=== PATIENT | male | born 1980 | race Two or more races ===

== ENCOUNTER 2022-11-15 21:03 | Inpatient (IN) | payer MEDICARE, OTHER ==
[~2022-11-15] VITALS: Ht 175.3 cm; Wt 110.2 kg
--- NOTE | 2022-11-15 19:50 | NUR ---
Admission report received from [facility] nurse Rust.
--- NOTE | 2022-11-15 20:30 | NUR ---
Arrived in the floor from [facility] via [facility]. AAOx3, verbally responsive, calm, in no apparent distress. Transferred from [facility] to bed with 3 people assist. F/C intact and patent with moderate amount of yellow colored urine. Dressing on right ischial wound soiled and curled. Redness noted on perineum area. Able to move all extremities and able to repositioned self in bed. Routine admission care done. Safety measures and fall precaution initiated. Plan of care initiated. VS taken and recorded.
[2022-11-15] MEDS ORDERED: INSU100V7 SQ (22:28)
[2022-11-15] MEDS ORDERED: CLOT15CR5 TP (22:28)
[2022-11-15] MEDS ORDERED: ACET-2154 PO (22:28)
[2022-11-15] MEDS ORDERED: METO-357 PO (22:28)
[2022-11-15] MEDS ORDERED: PIPE3.3714 IV (22:28)
[2022-11-15] MEDS ORDERED: PANT40TA49 PO (22:28)
[2022-11-15] MEDS ORDERED: SODI473S8 MC (22:28)
[2022-11-15] MEDS ORDERED: HYDR-4209 PO (22:28)
[2022-11-15] MEDS ORDERED: INSU100V42 SQ (22:28)
[2022-11-15] MEDS ORDERED: PROT30LI PO (22:28)
[2022-11-15] MEDS ORDERED: METO25TA6 PO (22:28)
[2022-11-15] MEDS ORDERED: VALS1TAB6 PO (22:28)
[2022-11-15] MEDS ORDERED: FERR325T28 PO (22:28)
[2022-11-15] MEDS ORDERED: CLOZ100T32 PO ×2 (22:28)
[2022-11-15] MEDS ORDERED: FOLI1TAB94 PO (22:28)
[2022-11-15 23:54] VITALS: BP_SYST 146; BP_SYST 157; BP_DIAS 89; BP_DIAS 92
--- NOTE | 2022-11-16 01:39 | NUR ---
BS checked 223 mg/dl. Denies any s/s of hyperglycemia, stating that he drunk cranberry juice an hour ago and refused any insulin to be taken at this time. Will monitor.
[2022-11-16 05:45] VITALS: BP 143/63
[2022-11-16 07:45] VITALS: BP 160/97
[2022-11-16] MEDS: REMEDY ESSENTIAL ZINC PASTE 113 GM TOP SCH ×2 (09:17→20:34)
[2022-11-16] MEDS ORDERED: METO50TA16 PO (13:28)
[2022-11-16] MEDS ORDERED: VALS1TAB77 PO (13:28)
[2022-11-16] MEDS ORDERED: EMPA25TA PO (13:49)
[2022-11-16] MEDS ORDERED: LORA-259 PO (13:49)
[2022-11-16] MEDS ORDERED: INSU100I26 SQ (13:49)
--- NOTE | 2022-11-16 14:18 | NUR ---
INTERDISCIPLINARY TEAM CONFERENCE
[2022-11-16 15:48] VITALS: BP 126/69
[2022-11-16] MEDS ORDERED: ACETAMINOPHEN 325 MG TABLET PO PRN (17:30)
[2022-11-16] MEDS: PIPERACILLIN SODIUM/TAZOBACTAM 3.375 G in IV DEXTROSE 5% 100 ML IV SCH ×2 (19:49→22:00)
[2022-11-16] MEDS: HYDROCODONE/APAP 5-325MG TABLET PO PRN (19:59)
[2022-11-16 20:00] VITALS: BP 142/82
--- NOTE | 2022-11-16 20:02 | NUR ---
RECEIVED REPORT FROM AGGIE COLINDRES RN. PATIENT IS ALERT & ORIENTED X4 AND SPEAKS ARMENIAN. VITAL SIGNS STABLE. PATIENT TOLERATES PO MEDICATIONS AND DIET WELL. PATIENT PARTICIPATES WITH PHYSICAL AND OCCUPATIONAL THERAPY SCHEDULE. PATIENT VOIDS ADEQUATELY & HAD 3 BOWEL MOVEMENTS. PATIENT HAD COMPLAINTS OF PAIN, BUT DID NOT WANT PAIN MEDICATIONS AT THE TIME. JASPAL MEANS, COMPLETED MEDICATION RECONCILIATION. NO ACUTE DISTRESS NOTED. FALL PRECAUTIONS OBSERVED; INCLUDING BUT NOT LIMITED TO BED IN LOWEST POSITION AND BED ALARM ON. ALL NEEDS MET AT THIS TIME. ENDORSED CARE TO VIDAL COLINDRES, FOR CONTINUATION OF CARE.
[2022-11-16] MEDS: CLOTRIMAZOLE/BETAMET DIPROP CREAM 15 GM TUBE TP SCH (20:33)
[2022-11-16] MEDS: CLOZAPINE 100 MG TABLET PO SCH (20:33)
[2022-11-16] MEDS: METOPROLOL TARTRATE 50 MG TABLET PO SCH (20:37)
[2022-11-16] MEDS: INSULIN GLARGINE,HUM 300 UNITS/3 ML CARTRIDGE SQ SCH (20:44)
[2022-11-16] MEDS ORDERED: PIPERACILLIN SODIUM/TAZOBACTAM 3.375 G in IV DEXTROSE 5% 50 ML IV SCH (22:00)
--- NOTE | 2022-11-16 23:29 | NUR ---
Zosyn IV ATB due for 2199 was not given. Administered first dose at 2000 @25cc/hour x 4 hour.
[2022-11-17 04:00] VITALS: BP 145/84
[2022-11-17] MEDS: PIPERACILLIN SODIUM/TAZOBACTAM 3.375 G in IV DEXTROSE 5% 100 ML IV SCH ×3 (05:19→21:22)
[2022-11-17] MEDS: PANTOPRAZOLE SODIUM 40 MG TABLET.DR PO SCH ×2 (06:03→17:45)
[2022-11-17] MEDS ORDERED: INSULIN LISPRO 300 UNIT/3 ML VIAL SQ SCH (07:30)
[2022-11-17 07:56] VITALS: BP 113/65
--- NOTE | 2022-11-17 08:37 | NUR ---
WOUND CARE CONSULT: ATTEMPTED TO SEE PT THIS AM AT 0750 BUT PT WAS SLEEPING SOUNDLY. REVIEWED CHART, NURSING DOCUMENTATION AND PHOTO WHICH INDICATES PERINEAL/BUTTOCK SURGICAL WOUND, PRESENT ON ADMISSION. MSG LEFT FOR DR JHONY MORA REGARDING WOUND TREATMENT AND SURGICAL FOLLOW UP. DISCUSSED SKIN PROTECTION WITH NURSING STAFF.
[2022-11-17] MEDS ORDERED: Empagliflozin (Jardiance) 25 MG) PO SCH (09:00)
[2022-11-17] MEDS: METOPROLOL TARTRATE 50 MG TABLET PO SCH ×2 (09:00→17:46)
[2022-11-17] MEDS: CLOZAPINE 100 MG TABLET PO SCH ×2 (09:42→20:17)
[2022-11-17] MEDS: EMPAGLIFLOZIN 25 MG TABLET PO SCH (09:42)
[2022-11-17] MEDS: VALSARTAN 160 MG TABLET PO SCH (09:43)
[2022-11-17] MEDS: FERROUS SULFATE 325 MG TABEC PO SCH (09:43)
[2022-11-17] MEDS: CLOTRIMAZOLE/BETAMET DIPROP CREAM 15 GM TUBE TP SCH ×2 (09:43→17:45)
[2022-11-17] MEDS: HYDROCHLOROTHIAZIDE 25 MG TABLET PO SCH (09:44)
[2022-11-17] MEDS: FOLIC ACID 1 MG TABLET PO SCH (09:44)
[2022-11-17] MEDS: SODIUM HYPOCHLORITE 0.125% (QUARTER STRENGTH) 473 ML BOTTLE TP SCH (09:45)
[2022-11-17] MEDS: PROTEIN SUPPLEMENT (PROSTAT) 30 ML LIQUID PO SCH ×2 (09:45→17:45)
[2022-11-17] MEDS: REMEDY ESSENTIAL ZINC PASTE 113 GM TOP SCH ×2 (09:45→20:18)
[2022-11-17] MEDS: INSULIN GLARGINE,HUM 300 UNITS/3 ML CARTRIDGE SQ SCH ×2 (09:54→20:23)
--- NOTE | 2022-11-17 10:48 | NUR ---
WOUND CARE: PT SEEN FOR PERINEAL/RT BUTTOCK SURGICAL WOUND WHICH IS NOTED TO HAVE SURGICAL DEVICE IN PLACE. RED GRANULATION TISSUE NOTED WITH MODERATE AMOUNT OF SEROSANGUINOUS DRAINAGE, NO ODOR. RECOMMEND SURGICAL FOLLOW UP. DISCUSSED SKIN PROTECTION AND WOUND CARE RECOMMENDATIONS WITH NURSING STAFF. MD IN AGREEMENT WITH PLAN OF CARE.
[2022-11-17] MEDS ORDERED: DEXTROSE 50% 50 ML DISP.SYRIN IV PRN (12:15)
[2022-11-17] MEDS: INSULIN REGULAR, HUMAN 300 UNIT/3 ML VIAL SQ PRN ×3 (12:36→20:25)
[2022-11-17 15:44] VITALS: BP 122/66
[2022-11-17] MEDS: BLOOD SUGAR DIAGNOSTIC 1 EACH STRIP VI SCH ×2 (16:33→20:21)
--- NOTE | 2022-11-17 19:50 | NUR ---
RECEIVED REPORT FROM AGGIE COLINDRES RN. PATIENT IS ALERT & ORIENTED X4 AND SPEAKS KHMER. VITAL SIGNS STABLE. PATIENT TOLERATES PO & IV MEDICATIONS AND DIET WELL. ANTIBIOTICS GIVEN ORDERED. PATIENT PARTICIPATES WITH PHYSICAL AND OCCUPATIONAL THERAPY SCHEDULE. CAIN CATHETER PATENT AND DRAINING. PATIENT VOIDS ADEQUATELY & HAD 3 BOWEL MOVEMENTS. PATIENT HAD COMPLAINTS OF PAIN, BUT DID NOT WANT PAIN MEDICATIONS AT THE TIME. INSULIN SLIDING SCALE AND DIABETES MANAGEMENT RECONCILED BY PHARMACY, PER REQUEST OF JASPAL MEANS. NO ACUTE DISTRESS NOTED. FALL PRECAUTIONS OBSERVED; INCLUDING BUT NOT LIMITED TO BED IN LOWEST POSITION AND BED ALARM ON. ALL NEEDS MET AT THIS TIME. ENDORSED CARE TO VIDAL COLINDRES, FOR CONTINUATION OF CARE.
[2022-11-17 20:00] VITALS: BP 158/83
[2022-11-18 04:53] VITALS: BP 140/75
[2022-11-18] MEDS: PIPERACILLIN SODIUM/TAZOBACTAM 3.375 G in IV DEXTROSE 5% 100 ML IV SCH ×3 (05:19→22:12)
[2022-11-18] MEDS: PANTOPRAZOLE SODIUM 40 MG TABLET.DR PO SCH ×2 (05:24→17:22)
[2022-11-18] MEDS: BLOOD SUGAR DIAGNOSTIC 1 EACH STRIP VI SCH ×4 (06:06→20:44)
[2022-11-18 07:59] VITALS: BP 153/85
--- NOTE | 2022-11-18 08:47 | NUR ---
INDIVIDUALIZED PLAN OF CARE
[2022-11-18] MEDS: FOLIC ACID 1 MG TABLET PO SCH (09:14)
[2022-11-18] MEDS: FERROUS SULFATE 325 MG TABEC PO SCH (09:15)
[2022-11-18] MEDS: HYDROCHLOROTHIAZIDE 25 MG TABLET PO SCH (09:15)
[2022-11-18] MEDS: METOPROLOL TARTRATE 50 MG TABLET PO SCH ×2 (09:15→17:22)
[2022-11-18] MEDS: EMPAGLIFLOZIN 25 MG TABLET PO SCH (09:16)
[2022-11-18] MEDS: CLOZAPINE 100 MG TABLET PO SCH ×2 (09:16→20:44)
[2022-11-18] MEDS: REMEDY ESSENTIAL ZINC PASTE 113 GM TOP SCH ×2 (09:17→20:47)
[2022-11-18] MEDS: PROTEIN SUPPLEMENT (PROSTAT) 30 ML LIQUID PO SCH ×2 (09:18→17:22)
[2022-11-18] MEDS: INSULIN GLARGINE,HUM 300 UNITS/3 ML CARTRIDGE SQ SCH ×2 (09:19→20:45)
[2022-11-18] MEDS: SODIUM HYPOCHLORITE 0.125% (QUARTER STRENGTH) 473 ML BOTTLE TP SCH (09:20)
[2022-11-18] MEDS: CLOTRIMAZOLE/BETAMET DIPROP CREAM 15 GM TUBE TP SCH ×2 (09:21→17:23)
[2022-11-18] MEDS: INSULIN REGULAR, HUMAN 300 UNIT/3 ML VIAL SQ PRN ×4 (09:22→20:56)
[2022-11-18] MEDS: VALSARTAN 160 MG TABLET PO SCH (09:31)
[2022-11-18] MEDS: HYDROCODONE/APAP 5-325MG TABLET PO PRN ×2 (11:51→17:33)
[2022-11-18 15:52] VITALS: BP 130/73
[2022-11-18] MEDS: LORAZEPAM 1 MG TABLET PO PRN (17:31)
[2022-11-18 20:00] VITALS: BP 125/72
--- NOTE | 2022-11-18 23:00 | NUR ---
1900-PATIENT IN BED, AWAKE, A/Ox4, VERBALIZES NEEDS AND FOLLOWS DIRECTIONS. NO RESPIRATORY DISTRESS NOTED. The patient has patent joaquin midline that is clean, patent, dry, and intact. The patient has a lee catheter that is clean, patent, dry, intact, and below the bladder. The patient has a wound in his groin area. Wound is not draining, and is clean, and dry. Changed dressing of wound. SAFETY MEASURES AND CALL LIGHT AT REACH, bed at lowest position, wheels lock, and two side rails up, bed alarm on. ORAL FLUIDS OFFERED LOUIE. AND TAKEN WELL. Will continue to monitor throughout the shift. 2200- The patient is awake and watching television. The patient has no signs of distress, or sob. Will continue to monitor throughout the shift. 0300- The patient request for an extra pillow. Item is given to the patient. The patient has no sob. Will continue to monitor throughout the shift.
[2022-11-19 04:00] VITALS: BP 141/78
[2022-11-19] MEDS: PIPERACILLIN SODIUM/TAZOBACTAM 3.375 G in IV DEXTROSE 5% 100 ML IV SCH ×3 (06:49→22:10)
[2022-11-19] MEDS: PANTOPRAZOLE SODIUM 40 MG TABLET.DR PO SCH ×2 (06:49→16:18)
[2022-11-19] MEDS: BLOOD SUGAR DIAGNOSTIC 1 EACH STRIP VI SCH ×4 (07:37→21:22)
[2022-11-19 08:52] VITALS: BP 135/83
[2022-11-19] MEDS: FERROUS SULFATE 325 MG TABEC PO SCH (09:09)
[2022-11-19] MEDS: HYDROCHLOROTHIAZIDE 25 MG TABLET PO SCH (09:09)
[2022-11-19] MEDS: FOLIC ACID 1 MG TABLET PO SCH (09:09)
[2022-11-19] MEDS: METOPROLOL TARTRATE 50 MG TABLET PO SCH ×2 (09:09→16:19)
[2022-11-19] MEDS: REMEDY ESSENTIAL ZINC PASTE 113 GM TOP SCH ×2 (09:10→21:26)
[2022-11-19] MEDS: VALSARTAN 160 MG TABLET PO SCH (09:10)
[2022-11-19] MEDS: PROTEIN SUPPLEMENT (PROSTAT) 30 ML LIQUID PO SCH ×2 (09:10→16:19)
[2022-11-19] MEDS: SODIUM HYPOCHLORITE 0.125% (QUARTER STRENGTH) 473 ML BOTTLE TP SCH (09:11)
[2022-11-19] MEDS: CLOTRIMAZOLE/BETAMET DIPROP CREAM 15 GM TUBE TP SCH ×2 (09:11→16:20)
[2022-11-19] MEDS: CLOZAPINE 100 MG TABLET PO SCH ×2 (09:15→21:21)
[2022-11-19] MEDS: EMPAGLIFLOZIN 25 MG TABLET PO SCH (09:15)
[2022-11-19] MEDS: INSULIN GLARGINE,HUM 300 UNITS/3 ML CARTRIDGE SQ SCH ×2 (09:15→21:22)
[2022-11-19] MEDS: INSULIN REGULAR, HUMAN 300 UNIT/3 ML VIAL SQ PRN ×3 (11:09→21:23)
[2022-11-19 16:23] VITALS: BP 141/88
--- NOTE | 2022-11-19 16:36 | NUR ---
dressing changed to right groin wound, no drainage noted, wound bed is red in color, drainage tube is intact. no acute distress noted, no events noted.
--- NOTE | 2022-11-19 23:00 | NUR ---
1910-PATIENT IN BED, AWAKE, A/Ox4, VERBALIZES NEEDS AND FOLLOWS DIRECTIONS. NO RESPIRATORY DISTRESS NOTED. The patient has patent joaquin midline that is clean, patent, dry, and intact. The patient has a lee catheter that is clean, patent, dry, intact, and below the bladder. The patient has a wound in his groin area. Wound is not draining, and is clean, and dry. Changed dressing of wound. SAFETY MEASURES AND CALL LIGHT AT REACH, bed at lowest position, wheels lock, and two side rails up, bed alarm on. ORAL FLUIDS OFFERED LOUIE. AND TAKEN WELL. Will continue to monitor throughout the shift. 2300- The patient is awake and request for extra water. item is given to the patient. The patient has no signs of distress, or sob. Will continue to monitor throughout the shift. 0200- The patient request for an extra pillow. Item is given to the patient. The patient has no sob. Will continue to monitor throughout the shift.
[2022-11-20] MEDS: PANTOPRAZOLE SODIUM 40 MG TABLET.DR PO SCH ×2 (06:27→16:40)
[2022-11-20] MEDS: PIPERACILLIN SODIUM/TAZOBACTAM 3.375 G in IV DEXTROSE 5% 100 ML IV SCH ×3 (06:27→21:29)
[2022-11-20 06:59] LABS: HEMATOCRIT 26.1 % (36.7-47.1); MEAN CORPUSCULAR HEMOGLOBIN 29.7 uug (23.8-33.4); MEAN CORPUSCULAR VOLUME 89.8 fL (73.0-96.2); PLATELET COUNT (AUTO) 377 K/uL (152-348)
[2022-11-20 07:30] VITALS: BP 132/89
[2022-11-20 07:47] LABS: BILIRUBIN,TOTAL 0.2 mg/dL (0.2-1.0); CREATININE 1.9 mg/dL (0.6-1.3); MAGNESIUM 2.3 mg/dL (1.8-2.4); PHOSPHOROUS 4.5 mg/dL (2.5-4.9); POTASSIUM 3.3 mmol/L (3.5-5.1); TOTAL PROTEIN, SERUM 7.3 g/dL (6.4-8.2)
[2022-11-20] MEDS: INSULIN REGULAR, HUMAN 300 UNIT/3 ML VIAL SQ PRN ×4 (07:56→20:35)
[2022-11-20] MEDS: BLOOD SUGAR DIAGNOSTIC 1 EACH STRIP VI SCH ×4 (07:57→20:30)
[2022-11-20] MEDS: INSULIN GLARGINE,HUM 300 UNITS/3 ML CARTRIDGE SQ SCH ×2 (08:01→20:36)
[2022-11-20] MEDS: FOLIC ACID 1 MG TABLET PO SCH (08:02)
[2022-11-20] MEDS: HYDROCHLOROTHIAZIDE 25 MG TABLET PO SCH (08:04)
[2022-11-20] MEDS: METOPROLOL TARTRATE 50 MG TABLET PO SCH ×2 (08:05→16:40)
[2022-11-20] MEDS: VALSARTAN 160 MG TABLET PO SCH (08:05)
[2022-11-20] MEDS: EMPAGLIFLOZIN 25 MG TABLET PO SCH (08:06)
[2022-11-20] MEDS: CLOZAPINE 100 MG TABLET PO SCH ×2 (08:06→20:24)
[2022-11-20] MEDS: PROTEIN SUPPLEMENT (PROSTAT) 30 ML LIQUID PO SCH ×2 (08:07→16:40)
[2022-11-20] MEDS: REMEDY ESSENTIAL ZINC PASTE 113 GM TOP SCH ×2 (08:07→20:26)
[2022-11-20] MEDS: FERROUS SULFATE 325 MG TABEC PO SCH (08:08)
[2022-11-20] MEDS: SODIUM HYPOCHLORITE 0.125% (QUARTER STRENGTH) 473 ML BOTTLE TP SCH (08:08)
[2022-11-20] MEDS: CLOTRIMAZOLE/BETAMET DIPROP CREAM 15 GM TUBE TP SCH ×2 (08:08→16:41)
[2022-11-20] MEDS ORDERED: POTASSIUM CHLORIDE 10 MEQ TAB.PRT.SR PO ONE (11:00)
--- NOTE | 2022-11-20 15:10 | NUR ---
patient is alert, oriented x4, patient noted with blood pressure dropped during physical therapy session, however patient remained alert, oriented x4, no sob, respiration are even nonlabored, skin warm and dry to touch, blood pressure rechecked 97/55. assisted back to bed, fluids given, tolerated well. continue to monitor Addendum: 11/20/22 at 1600 by NIA CHI RN, RN Patient complained feeling dizzy though. reported to JASPAL banerjee, JASPAL banerjee ordered parameteres to all blood pressure medications. continue to monitor patient closely, no acute distress noted at this time. Addendum: 11/20/22 at 1841 by NIA CHI RN RN patient refused to have his right groin area dressing changed, risks and benefits explained, patient verbalized understanding of it. patient stated he feels dry. endorse to next shift accordingly.
[2022-11-20 15:41] VITALS: BP 117/66
[2022-11-20 18:36] LABS: *BILIRUBIN,URIN NEGATIVE (NEGATIVE); *BLOOD, URINE 2+ (NEGATIVE); *COLOR,URINE YELLOW (YELLOW); *KETONES,URINE NEGATIVE (NEGATIVE); *UROBILINOGEN,URINE 0.2 E.U./dl (NORMAL); LEUKOCYTE ESTERASE ,URINE 2+ (NEGATIVE); NITRITE, URINE NEGATIVE (NEGATIVE)
[2022-11-20 18:43] LABS: *CLARITY,URINE SLIGHTLY CLOUDY (CLEAR); UGLUCOSE 2+ (NEGATIVE)
[2022-11-20 18:50] LABS: *CREATININE,URINE 42.4 mg/dL (30-125); *URINE TOTAL PROTEIN RANDOM 70.7 mg/dL (<150/24HR)
[2022-11-20 20:23] LABS: RBC,URINE 50-80 /HPF (0-3)
[2022-11-20 20:24] LABS: BACTERIA,URINE FEW /HPF (NONE SEEN); SQUAMOUS EPITHELIAL CELL,UR NONE SEEN /HPF (NONE SEEN); WBC,URINE 20-50 /HPF (0-3); YEAST,URINE MANY /HPF (NONE SEEN)
[2022-11-20 20:36] VITALS: BP 118/70
[2022-11-21 04:25] VITALS: BP 93/54
[2022-11-21] MEDS: PIPERACILLIN SODIUM/TAZOBACTAM 3.375 G in IV DEXTROSE 5% 100 ML IV SCH ×3 (05:18→22:04)
[2022-11-21] MEDS: PANTOPRAZOLE SODIUM 40 MG TABLET.DR PO SCH ×2 (06:19→16:48)
[2022-11-21] MEDS: BLOOD SUGAR DIAGNOSTIC 1 EACH STRIP VI SCH ×4 (06:22→20:15)
[2022-11-21 07:31] VITALS: BP 121/76
[2022-11-21 07:40] LABS: HEMATOCRIT 27.8 % (36.7-47.1); MEAN CORPUSCULAR HEMOGLOBIN 29.9 uug (23.8-33.4); MEAN CORPUSCULAR VOLUME 89.6 fL (73.0-96.2); PLATELET COUNT (AUTO) 379 K/uL (152-348)
[2022-11-21 08:48] LABS: CREATININE 2.1 mg/dL (0.6-1.3); POTASSIUM 3.8 mmol/L (3.5-5.1)
[2022-11-21] MEDS: VALSARTAN 160 MG TABLET PO SCH (08:48)
[2022-11-21] MEDS: FOLIC ACID 1 MG TABLET PO SCH (08:48)
[2022-11-21 08:49] LABS: BILIRUBIN,TOTAL 0.2 mg/dL (0.2-1.0); MAGNESIUM 2.4 mg/dL (1.8-2.4); PHOSPHOROUS 4.3 mg/dL (2.5-4.9); TOTAL PROTEIN, SERUM 7.7 g/dL (6.4-8.2)
[2022-11-21] MEDS: METOPROLOL TARTRATE 50 MG TABLET PO SCH ×2 (08:49→16:49)
[2022-11-21] MEDS: HYDROCHLOROTHIAZIDE 25 MG TABLET PO SCH (08:49)
[2022-11-21] MEDS: REMEDY ESSENTIAL ZINC PASTE 113 GM TOP SCH ×2 (08:50→20:11)
[2022-11-21] MEDS: PROTEIN SUPPLEMENT (PROSTAT) 30 ML LIQUID PO SCH ×2 (08:50→16:57)
[2022-11-21] MEDS: CLOTRIMAZOLE/BETAMET DIPROP CREAM 15 GM TUBE TP SCH ×2 (08:51→16:57)
[2022-11-21] MEDS: FERROUS SULFATE 325 MG TABEC PO SCH (08:52)
[2022-11-21] MEDS: CLOZAPINE 100 MG TABLET PO SCH ×2 (08:55→20:11)
[2022-11-21] MEDS: EMPAGLIFLOZIN 25 MG TABLET PO SCH (09:01)
[2022-11-21] MEDS: INSULIN GLARGINE,HUM 300 UNITS/3 ML CARTRIDGE SQ SCH ×2 (09:13→20:16)
[2022-11-21] MEDS: SODIUM HYPOCHLORITE 0.125% (QUARTER STRENGTH) 473 ML BOTTLE TP SCH (10:58)
[2022-11-21] MEDS: INSULIN REGULAR, HUMAN 300 UNIT/3 ML VIAL SQ PRN ×3 (12:12→20:18)
[2022-11-21] MEDS: HYDROCODONE/APAP 5-325MG TABLET PO PRN (12:21)
--- NOTE | 2022-11-21 12:21 | NUR ---
pain complained of pain, he asked for NOrco and it was administered, tolerated well. He is alert and orient x4. Breathing normal on room air. He is calm and relaxed at this time. Will continue to monitor.
[2022-11-21 16:00] VITALS: BP 121/85
[2022-11-21 20:00] VITALS: BP 127/70
[2022-11-22] MEDS: PIPERACILLIN SODIUM/TAZOBACTAM 3.375 G in IV DEXTROSE 5% 100 ML IV SCH (05:37)
[2022-11-22 06:14] VITALS: BP 129/68
[2022-11-22] MEDS: PANTOPRAZOLE SODIUM 40 MG TABLET.DR PO SCH ×2 (06:21→16:48)
[2022-11-22] MEDS: BLOOD SUGAR DIAGNOSTIC 1 EACH STRIP VI SCH ×4 (06:26→20:53)
[2022-11-22] MEDS: INSULIN REGULAR, HUMAN 300 UNIT/3 ML VIAL SQ PRN ×4 (07:54→20:59)
[2022-11-22 07:55] VITALS: BP 127/83
[2022-11-22] MEDS: PROTEIN SUPPLEMENT (PROSTAT) 30 ML LIQUID PO SCH ×2 (09:00→16:51)
[2022-11-22] MEDS: FERROUS SULFATE 325 MG TABEC PO SCH (09:47)
[2022-11-22] MEDS: REMEDY ESSENTIAL ZINC PASTE 113 GM TOP SCH ×2 (09:47→20:49)
[2022-11-22] MEDS: METOPROLOL TARTRATE 50 MG TABLET PO SCH (09:48)
[2022-11-22] MEDS: VALSARTAN 160 MG TABLET PO SCH (09:48)
[2022-11-22] MEDS: EMPAGLIFLOZIN 25 MG TABLET PO SCH (09:49)
[2022-11-22] MEDS: FOLIC ACID 1 MG TABLET PO SCH (09:49)
[2022-11-22] MEDS: HYDROCHLOROTHIAZIDE 25 MG TABLET PO SCH (09:50)
[2022-11-22] MEDS: CLOZAPINE 100 MG TABLET PO SCH ×2 (09:51→20:49)
[2022-11-22] MEDS: INSULIN GLARGINE,HUM 300 UNITS/3 ML CARTRIDGE SQ SCH ×2 (09:55→20:54)
[2022-11-22] MEDS: SODIUM HYPOCHLORITE 0.125% (QUARTER STRENGTH) 473 ML BOTTLE TP SCH (10:14)
[2022-11-22] MEDS: CLOTRIMAZOLE/BETAMET DIPROP CREAM 15 GM TUBE TP SCH ×2 (10:15→16:49)
--- NOTE | 2022-11-22 10:15 | NUR ---
Per Robertson, PT, pt was c/o feeling light headed while on the commode. Sitting bp was 89/58, HR 89, satting 99% on RA. Once back in bed at 0950 pt's BP was 104/63, HR 84. Pt A+Ox4 now, no longer c/o feeling light headed or dizzy. Will continue to monitor. Addendum: 11/22/22 at 1224 by CECILIO EVANGELISTA RN Notified Dr. James at 1128, MD aware. Will follow orders placed.
[2022-11-22] MEDS ORDERED: CLONIDINE HCL 0.1 MG TABLET PO PRN (12:00)
--- NOTE | 2022-11-22 12:25 | NUR ---
LEE CATHETER REMOVED PER MD ORDER. 800 mls clear urine with small white particles in lee. Will monitor for voiding.
[2022-11-22 12:46] LABS: CREATININE 2.1 mg/dL (0.6-1.3); MAGNESIUM 2.4 mg/dL (1.8-2.4); PHOSPHOROUS 3.7 mg/dL (2.5-4.9); POTASSIUM 3.9 mmol/L (3.5-5.1)
[2022-11-22 12:47] LABS: HEMATOCRIT 28.6 % (36.7-47.1); MEAN CORPUSCULAR HEMOGLOBIN 29.3 uug (23.8-33.4); MEAN CORPUSCULAR VOLUME 89.5 fL (73.0-96.2); PLATELET COUNT (AUTO) 391 K/uL (152-348)
[2022-11-22] MEDS ORDERED: MICAFUNGIN SODIUM 100 MG in IV NORMAL SALINE 100 ML IV SCH (13:00)
--- NOTE | 2022-11-22 13:00 | NUR ---
PT URINATED in commode after CAIN was removed.
[2022-11-22] MEDS ORDERED: CEFTRIAXONE 1 G in IV DEXTROSE 5% 50 ML IV SCH (14:00)
[2022-11-22 16:07] VITALS: BP 122/65
--- NOTE | 2022-11-22 19:19 | NUR ---
Endorsed pt to [facility] nurse. 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 Pt stable, no s/s of distress noted.
[2022-11-22 20:20] VITALS: BP 96/53
[2022-11-22] MEDS: IV NS 1000 ML 1,000 ML IV PRN (20:44)
[2022-11-23 04:30] VITALS: BP 122/76
[2022-11-23] MEDS: BLOOD SUGAR DIAGNOSTIC 1 EACH STRIP VI SCH ×4 (05:57→22:52)
[2022-11-23] MEDS: PANTOPRAZOLE SODIUM 40 MG TABLET.DR PO SCH ×2 (05:57→16:19)
[2022-11-23 07:45] VITALS: BP 110/76
[2022-11-23] MEDS: PROTEIN SUPPLEMENT (PROSTAT) 30 ML LIQUID PO SCH ×2 (09:00→17:00)
[2022-11-23] MEDS: INSULIN REGULAR, HUMAN 300 UNIT/3 ML VIAL SQ PRN ×4 (09:03→22:54)
[2022-11-23] MEDS: FERROUS SULFATE 325 MG TABEC PO SCH (09:04)
[2022-11-23] MEDS: FLUCONAZOLE 100 MG TABLET PO SCH (09:04)
[2022-11-23] MEDS: FOLIC ACID 1 MG TABLET PO SCH (09:04)
[2022-11-23] MEDS: CLOZAPINE 100 MG TABLET PO SCH ×2 (09:05→22:51)
[2022-11-23] MEDS: SODIUM HYPOCHLORITE 0.125% (QUARTER STRENGTH) 473 ML BOTTLE TP SCH (09:07)
[2022-11-23] MEDS: CLOTRIMAZOLE/BETAMET DIPROP CREAM 15 GM TUBE TP SCH ×2 (09:08→16:28)
[2022-11-23] MEDS: EMPAGLIFLOZIN 25 MG TABLET PO SCH (09:09)
[2022-11-23] MEDS: REMEDY ESSENTIAL ZINC PASTE 113 GM TOP SCH ×2 (09:12→22:52)
--- NOTE | 2022-11-23 09:30 | NUR ---
JARDIANCE medication does not scan. Notified Pharmacy.
[2022-11-23] MEDS: INSULIN GLARGINE,HUM 300 UNITS/3 ML CARTRIDGE SQ SCH ×2 (10:09→22:53)
[2022-11-23] MEDS: IV NS 1000 ML 1,000 ML IV PRN (12:18)
--- NOTE | 2022-11-23 15:06 | NUR ---
INTERDISCIPLINARY TEAM CONFERENCE
[2022-11-23 16:39] VITALS: BP 139/79
--- NOTE | 2022-11-23 19:27 | NUR ---
Spoke with Dr. Cirilo Montgomery re: removal of drain tube prior to discharge per ARU meeting today at 1pm. Dr. Montgomery says that he will need to see the wound first and he hopes to be able to do that prior to pt's discharge which he knows is planned for 11/28/22.
[2022-11-23 20:00] VITALS: BP 131/98
[2022-11-24] MEDS: IV NS 1000 ML 1,000 ML IV PRN ×2 (02:36→22:41)
[2022-11-24 03:43] VITALS: BP 145/99
[2022-11-24] MEDS: PANTOPRAZOLE SODIUM 40 MG TABLET.DR PO SCH ×2 (06:11→17:06)
[2022-11-24] MEDS: BLOOD SUGAR DIAGNOSTIC 1 EACH STRIP VI SCH ×4 (06:17→20:36)
--- NOTE | 2022-11-24 07:55 | NUR ---
0730-Rec'd in bed asleep, able to wake up on verbal commands/tactile stimuli. Patient denies pain. No unusual observations. Safety measures in place and call light at reach.
[2022-11-24 08:00] VITALS: BP 143/88
[2022-11-24] MEDS: FOLIC ACID 1 MG TABLET PO SCH (08:57)
[2022-11-24] MEDS: FLUCONAZOLE 100 MG TABLET PO SCH (08:57)
[2022-11-24] MEDS: FERROUS SULFATE 325 MG TABEC PO SCH (08:58)
[2022-11-24] MEDS: EMPAGLIFLOZIN 25 MG TABLET PO SCH (09:01)
[2022-11-24] MEDS: CLOZAPINE 100 MG TABLET PO SCH ×2 (09:01→20:39)
[2022-11-24] MEDS: REMEDY ESSENTIAL ZINC PASTE 113 GM TOP SCH ×2 (09:02→20:35)
[2022-11-24] MEDS: PROTEIN SUPPLEMENT (PROSTAT) 30 ML LIQUID PO SCH ×2 (09:02→17:06)
[2022-11-24] MEDS: INSULIN GLARGINE,HUM 300 UNITS/3 ML CARTRIDGE SQ SCH ×2 (09:03→20:35)
[2022-11-24] MEDS: CLOTRIMAZOLE/BETAMET DIPROP CREAM 15 GM TUBE TP SCH ×2 (09:04→17:15)
[2022-11-24] MEDS: SODIUM HYPOCHLORITE 0.125% (QUARTER STRENGTH) 473 ML BOTTLE TP SCH (09:05)
[2022-11-24] MEDS: INSULIN REGULAR, HUMAN 300 UNIT/3 ML VIAL SQ PRN ×3 (11:45→20:38)
--- NOTE | 2022-11-24 12:32 | NUR ---
0900-SCHEDULED MEDICATION ADMINISTERED WITH NO ASE NOTED. ORAL FLUIDS TAKEN WELL. 0930-OOB AMBULATING WITH [facility]WW AND REHAB PERSON, PATIENT ACTIVELY PARTICIPATING AND DOING WELL IN THERAPY. DRESSING TO MIDLINE TIBURCIO CHANGED, PATIENT DENIES ANY DISCOMFORT. 1130-BS CHECKED ORDERED/SS INSULIN ADMINISTERED ORDERED; NO S/S OF HYPO/HYPERGLYCEMIA NOTED. 1230-PATIENT EATING LUNCH, NO SWALLOWING PROBLEMS NOTED, SUPERVISION AND ASSIST PROVIDED.
[2022-11-24] MEDS: LORAZEPAM 1 MG TABLET PO PRN (13:12)
[2022-11-24 16:00] VITALS: BP 130/72
--- NOTE | 2022-11-24 18:33 | NUR ---
Wound care provided/done to rt inner thigh abscess as ordered by MD. Patient tomasa. well procedure with no c/o any pain. No unusual occurrences of findings through out shift. All needs anticipated and met. Patient was visited by his parents during shift.
[2022-11-24 20:00] VITALS: BP 128/81
--- NOTE | 2022-11-25 06:29 | NUR ---
Patient slept well, in no acute distress. No c/o pain/discomfort. Wound dressing intact. TIBURCIO midline intact. Needs assessed and attended to.
[2022-11-25] MEDS: PANTOPRAZOLE SODIUM 40 MG TABLET.DR PO SCH ×2 (06:35→16:52)
[2022-11-25] MEDS: BLOOD SUGAR DIAGNOSTIC 1 EACH STRIP VI SCH ×4 (06:44→21:04)
[2022-11-25 06:57] LABS: HEMATOCRIT 27.4 % (36.7-47.1); MEAN CORPUSCULAR HEMOGLOBIN 29.6 uug (23.8-33.4); MEAN CORPUSCULAR VOLUME 89.4 fL (73.0-96.2); PLATELET COUNT (AUTO) 410 K/uL (152-348)
[2022-11-25 07:23] LABS: BILIRUBIN,TOTAL 0.2 mg/dL (0.2-1.0); CREATININE 1.6 mg/dL (0.6-1.3); MAGNESIUM 2.3 mg/dL (1.8-2.4); PHOSPHOROUS 3.6 mg/dL (2.5-4.9); POTASSIUM 3.7 mmol/L (3.5-5.1); TOTAL PROTEIN, SERUM 7.5 g/dL (6.4-8.2)
[2022-11-25 07:48] VITALS: BP 116/77
[2022-11-25] MEDS: FERROUS SULFATE 325 MG TABEC PO SCH (08:45)
[2022-11-25] MEDS: FOLIC ACID 1 MG TABLET PO SCH (08:46)
[2022-11-25] MEDS: PROTEIN SUPPLEMENT (PROSTAT) 30 ML LIQUID PO SCH ×2 (08:46→16:52)
[2022-11-25] MEDS: EMPAGLIFLOZIN 25 MG TABLET PO SCH (08:46)
[2022-11-25] MEDS: FLUCONAZOLE 100 MG TABLET PO SCH (08:46)
[2022-11-25] MEDS: INSULIN GLARGINE,HUM 300 UNITS/3 ML CARTRIDGE SQ SCH ×2 (08:47→21:05)
[2022-11-25] MEDS: REMEDY ESSENTIAL ZINC PASTE 113 GM TOP SCH ×2 (08:47→21:04)
[2022-11-25] MEDS: CLOTRIMAZOLE/BETAMET DIPROP CREAM 15 GM TUBE TP SCH ×2 (08:48→16:53)
[2022-11-25] MEDS: CLOZAPINE 100 MG TABLET PO SCH ×2 (08:48→21:03)
[2022-11-25] MEDS: SODIUM HYPOCHLORITE 0.125% (QUARTER STRENGTH) 473 ML BOTTLE TP SCH (08:48)
[2022-11-25 15:19] VITALS: BP 111/78
[2022-11-25] MEDS: INSULIN REGULAR, HUMAN 300 UNIT/3 ML VIAL SQ PRN ×2 (16:48→21:08)
[2022-11-25 20:46] VITALS: BP 153/92
--- NOTE | 2022-11-25 23:00 | NUR ---
1905- The patient is aox4. Vital signs stable. The patient has joaquin midline that is clean, dry, patent, and intact. The patients mother is in the room. The patient has no complains of pain or sob. Call light within reach, two side rails up, bed at lowest position, and bed alarm on, wheels lock. Will continue to monitor throughout the shift. 2100- The patient has no sob or complains of pain. The patient request for extra water and an extra blanket. Items are given to the patient. Will continue to monitor throughout the shift.
[2022-11-26 04:11] VITALS: BP 139/80
[2022-11-26] MEDS: PANTOPRAZOLE SODIUM 40 MG TABLET.DR PO SCH ×2 (06:40→16:05)
[2022-11-26] MEDS: BLOOD SUGAR DIAGNOSTIC 1 EACH STRIP VI SCH ×4 (07:48→20:56)
[2022-11-26 07:55] VITALS: BP 122/77
[2022-11-26] MEDS: INSULIN REGULAR, HUMAN 300 UNIT/3 ML VIAL SQ PRN ×4 (08:29→20:58)
[2022-11-26] MEDS: CLOZAPINE 100 MG TABLET PO SCH ×2 (08:30→20:54)
[2022-11-26] MEDS: INSULIN GLARGINE,HUM 300 UNITS/3 ML CARTRIDGE SQ SCH ×2 (08:30→20:59)
[2022-11-26] MEDS: EMPAGLIFLOZIN 25 MG TABLET PO SCH (08:31)
[2022-11-26] MEDS: FOLIC ACID 1 MG TABLET PO SCH (08:31)
[2022-11-26] MEDS: FLUCONAZOLE 100 MG TABLET PO SCH (08:31)
[2022-11-26] MEDS: FERROUS SULFATE 325 MG TABEC PO SCH (08:31)
[2022-11-26] MEDS: REMEDY ESSENTIAL ZINC PASTE 113 GM TOP SCH ×2 (08:32→20:59)
[2022-11-26] MEDS: PROTEIN SUPPLEMENT (PROSTAT) 30 ML LIQUID PO SCH ×2 (08:32→16:05)
[2022-11-26] MEDS: CLOTRIMAZOLE/BETAMET DIPROP CREAM 15 GM TUBE TP SCH ×2 (08:33→16:05)
[2022-11-26] MEDS: SODIUM HYPOCHLORITE 0.125% (QUARTER STRENGTH) 473 ML BOTTLE TP SCH (08:33)
[2022-11-26 16:43] VITALS: BP 127/82
--- NOTE | 2022-11-26 19:22 | NUR ---
no distress noted. report given to next shift
[2022-11-26 20:00] VITALS: BP 120/79
--- NOTE | 2022-11-26 23:00 | NUR ---
1905- The patient is aox4. Vital signs stable. The patient has joaquin midline that is clean, dry, patent, and intact. The patients parents are in the room. The patient has no complains of pain or sob. Call light within reach, two side rails up, bed at lowest position, and bed alarm on, wheels lock. Will continue to monitor throughout the shift. 2200- The patient has no sob or complains of pain. The patient request for extra blankets. Items are given to the patient. Will continue to monitor throughout the shift.
[2022-11-27 04:00] VITALS: BP 127/81
[2022-11-27] MEDS: PANTOPRAZOLE SODIUM 40 MG TABLET.DR PO SCH ×2 (06:37→16:23)
[2022-11-27] MEDS: BLOOD SUGAR DIAGNOSTIC 1 EACH STRIP VI SCH ×4 (07:21→21:00)
[2022-11-27 07:37] VITALS: BP 121/71
[2022-11-27] MEDS: INSULIN REGULAR, HUMAN 300 UNIT/3 ML VIAL SQ PRN ×3 (08:23→16:34)
[2022-11-27] MEDS: FERROUS SULFATE 325 MG TABEC PO SCH (08:24)
[2022-11-27] MEDS: INSULIN GLARGINE,HUM 300 UNITS/3 ML CARTRIDGE SQ SCH ×2 (08:24→19:30)
[2022-11-27] MEDS: FOLIC ACID 1 MG TABLET PO SCH (08:25)
[2022-11-27] MEDS: FLUCONAZOLE 100 MG TABLET PO SCH (08:25)
[2022-11-27] MEDS: CLOZAPINE 100 MG TABLET PO SCH ×2 (08:25→22:16)
[2022-11-27] MEDS: EMPAGLIFLOZIN 25 MG TABLET PO SCH (08:25)
[2022-11-27] MEDS: REMEDY ESSENTIAL ZINC PASTE 113 GM TOP SCH ×2 (08:26→21:00)
[2022-11-27] MEDS: PROTEIN SUPPLEMENT (PROSTAT) 30 ML LIQUID PO SCH ×2 (08:26→16:21)
[2022-11-27] MEDS: SODIUM HYPOCHLORITE 0.125% (QUARTER STRENGTH) 473 ML BOTTLE TP SCH (08:26)
[2022-11-27] MEDS: CLOTRIMAZOLE/BETAMET DIPROP CREAM 15 GM TUBE TP SCH ×2 (08:27→16:23)
[2022-11-27 16:00] VITALS: BP 118/79
--- NOTE | 2022-11-27 16:58 | NUR ---
no acute distress noted, dressing changed to right groin area, wound bed is red in color, still noted with mild to moderate serosanguineous drainage, drainage tubes are intact and noted with serosanguineous moderate drainage.
[2022-11-27 20:00] VITALS: BP 141/91
[2022-11-28 04:00] VITALS: BP 92/60
[2022-11-28] MEDS: PANTOPRAZOLE SODIUM 40 MG TABLET.DR PO SCH (06:19)
[2022-11-28 07:15] LABS: HEMATOCRIT 30.8 % (36.7-47.1); MEAN CORPUSCULAR VOLUME 89.4 fL (73.0-96.2); PLATELET COUNT (AUTO) 446 K/uL (152-348)
[2022-11-28] MEDS: BLOOD SUGAR DIAGNOSTIC 1 EACH STRIP VI SCH ×2 (07:33→12:03)
[2022-11-28 07:48] LABS: BILIRUBIN,TOTAL 0.2 mg/dL (0.2-1.0); CREATININE 2.1 mg/dL (0.6-1.3); MAGNESIUM 2.6 mg/dL (1.8-2.4); PHOSPHOROUS 4.1 mg/dL (2.5-4.9); POTASSIUM 4.5 mmol/L (3.5-5.1)
[2022-11-28 07:52] VITALS: BP 132/93
--- NOTE | 2022-11-28 07:53 | NUR ---
RECEIVED PT ALERT AND ORIENTED X4 REFUSED HS MEDICATION AN ACCUCHEK BUT TOOK AM MEDICATION AND BLOOD SUGAR IS 231 NO SIGNS OF DIABETIC REACTION NOTED. WILL CONTINUE TO MONITOR FOR SAFETY. Addendum: 11/28/22 at 0757 by REGISTRY [facility] RN23 RN PT IS SCHEDULED FOR DISCHARGED THIS AM. WILL ENDORSE TO AM NURSE.
[2022-11-28] MEDS: INSULIN GLARGINE,HUM 300 UNITS/3 ML CARTRIDGE SQ SCH (09:08)
[2022-11-28] MEDS: CLOZAPINE 100 MG TABLET PO SCH (10:02)
[2022-11-28] MEDS: EMPAGLIFLOZIN 25 MG TABLET PO SCH (10:02)
[2022-11-28] MEDS: FOLIC ACID 1 MG TABLET PO SCH (10:02)
[2022-11-28] MEDS: FERROUS SULFATE 325 MG TABEC PO SCH (10:02)
[2022-11-28] MEDS: REMEDY ESSENTIAL ZINC PASTE 113 GM TOP SCH (10:03)
[2022-11-28] MEDS: INSULIN REGULAR, HUMAN 300 UNIT/3 ML VIAL SQ PRN ×2 (10:05→12:05)
[2022-11-28] MEDS: SODIUM HYPOCHLORITE 0.125% (QUARTER STRENGTH) 473 ML BOTTLE TP SCH (10:06)
[2022-11-28] MEDS: CLOTRIMAZOLE/BETAMET DIPROP CREAM 15 GM TUBE TP SCH (10:06)
[2022-11-28] MEDS: PROTEIN SUPPLEMENT (PROSTAT) 30 ML LIQUID PO SCH (10:09)
--- NOTE | 2022-11-28 15:43 | NUR ---
0730-REC'D PATIENT IN BED, AWAKE, A/OX4, ABLE TO VERBALIZE HIS NEEDS AND FOLLOW DIRECTIONS. PATIENT DENIES PAIN. NO ACUTE RESP. DISTRESS NOTED, ORAL FLUIDS TAKEN WELL. NO S/S OF HYPO/HYPERGLYCEMIA OR HYPO/HTN NOTED. CALL LIGHT WITHIN REACH, SAFETY MEASURES IN PLACE. 1200-FS FOR BS CHECKED WITH INS. S/S COVERAGE PROVIDED ORDERED. PATIENT IN STABLE CONDITIONS. EATING AND DRINKING WELL, DENIES N/V/GI DISCOMFORT. PENDING DC HOME TODAY. 1540-PATIENT WAS DISCHARGED SAFELY HOME. PAPERWORK NEEDED/PHYSICIAN ORDERS/INVENTORY LIST SIGNED/BELONGINGS TAKEN. ASSISTED PATIENT DOWN FLOOR BY THE EXIT. FREE OF PAIN, NO RESPIRATORY DISTRESS NOTED. VSS AND LOGGED IN [employer] SYSTEM PER PROTOCOL.
== END 2022-11-28 15:30 | disposition home health service (06) | DRG 871 ==
PROVIDERS: ADMIT Physical Medicine & Rehabilitation Pain Medicine; ATTEND Physical Medicine & Rehabilitation Pain Medicine
DX: A41.9 Sepsis, unspecified organism (principal); E11.10 Type 2 diabetes mellitus with ketoacidosis without coma; E43 Unspecified severe protein-calorie malnutrition; I46.9 Cardiac arrest, cause unspecified; N17.0 Acute kidney failure with tubular necrosis; N17.9 Acute kidney failure, unspecified; N13.8 Other obstructive and reflux uropathy; D68.59 Other primary thrombophilia; L02.215 Cutaneous abscess of perineum; N13.6 Pyonephrosis; L02.214 Cutaneous abscess of groin; B48.8 Other specified mycoses; E11.51 Type 2 diabetes mellitus with diabetic peripheral angiopathy without gangrene; N49.3 Fournier gangrene; R53.1 Weakness; E66.01 Morbid (severe) obesity due to excess calories; Z68.39 Body mass index [BMI] 39.0-39.9, adult; F20.9 Schizophrenia, unspecified; Z79.4 Long term (current) use of insulin; N32.3 Diverticulum of bladder; N40.1 Benign prostatic hyperplasia with lower urinary tract symptoms; D64.9 Anemia, unspecified; E87.6 Hypokalemia; I10 Essential (primary) hypertension; K76.0 Fatty (change of) liver, not elsewhere classified; Z91.14 Patient's other noncompliance with medication regimen
CPT/HCPCS: 36415; 76770; 83735; 84100; 84156; 84300; 85025; 97535-GO-CO; A6209; A6213; J0696; J1815; J2248; J2543; J7040